=== PATIENT | male | born 1975 | race Caucasian/White ===

== ENCOUNTER 2017-06-03 17:19 | Emergency (ER) | payer OTHER ==
[~2017-06-03 17:19] MED LIST: METH40TA9 PO
[2017-06-03] MEDS ORDERED: IOHEXOL 350 MG/ML 10 ML VIAL (for RAD DIAG) IVCONTRAST ONE (17:20)
[2017-06-03 17:21] VITALS: BP 116/67; PULSE 105; RESP 20; TEMP 99.1; O2SAT 97
[2017-06-03] MEDS ORDERED: SODIUM CHLOR 0.9% 1000 ML INJ 1,000 ML IV SCH (17:39)
--- NOTE | 2017-06-03 17:40 | PD ---
HPI Chief Complaint: Pain: Acute or Chronic Time Seen by Provider: 17:40 Travel History International Travel<30 days: No Contact w/Intl Traveler<30days: No Traveled to known affect area: No History of Present Illness HPI 41-year-old male with history of chronic pain, presents to the emergency department for evaluation right upper quadrant pain radiating to his back 3 weeks. Pain is sharp, stabbing, 8 out of 10. Patient states it associated with nausea and vomiting. Pain seems to get worse after meals. Patient does have history of cholecystectomy. Denies any alcohol consumption. Denies any fever or chills. His bowel movements and voids have been normal. He has no other symptoms to report. PFSH Past Medical History Hx Anticoagulant Therapy: No Cardiovascular Problems: No Chemotherapy: No Cerebrovascular Accident: No Diabetes: No Respiratory: No Social History Alcohol Use: Yes (SOCIAL) Tobacco Use: Yes (1 PPD) Substance Use: Yes (HX OF PRESCRIPTION PAIN MED ABUSE; COCAINE) Allergies-Medications (Allergen,Severity, Reaction): Coded Allergies: codeine (Verified Allergy, Severe, 06/03/17) ketorolac (Verified Allergy, Severe, 06/03/17) naproxen (Verified Allergy, Severe, 06/03/17) tramadol (Verified Allergy, Severe, 06/03/17) No Known Allergies (Unverified Allergy, Unknown, 06/03/17) Reported Meds & Prescriptions Reported Meds & Active Scripts Active Reported Gabapentin 600 Mg Tab 600 Mg PO BID Omeprazole 40 Mg Cap 40 Mg PO DAILY Oxycodone (Oxycodone HCl) 20 Mg Tab 20 Mg PO Q6HR Xanax (Alprazolam) 2 Mg Tab 2 Mg PO QID PRN Clonidine (Clonidine HCl) 0.3 Mg Tab 0.3 Mg PO TID Methadone Hcl (Methadone HCl) 40 Mg Tab 210 Mg PO DAILY Review of Systems Except as stated in HPI: all other systems reviewed are Neg Physical Exam Narrative GENERAL: Well-nourished male patient, lying in bed in no acute distress. SKIN: Focused skin assessment warm/dry. HEAD: Atraumatic. Normocephalic. EYES: Pupils equal and round. No scleral icterus. No injection or drainage. ENT: No nasal bleeding or discharge. Mucous membranes pink and moist. NECK: Trachea midline. No JVD. CARDIOVASCULAR: Tachycardic rate and rhythm. No murmur appreciated. RESPIRATORY: No accessory muscle use. Clear to auscultation. Breath sounds equal bilaterally. GASTROINTESTINAL: Abdomen soft, nondistended. Right upper quadrant tenderness to palpation with mild guarding.. Hepatic and splenic margins not palpable. MUSCULOSKELETAL: No obvious deformities. No clubbing. No cyanosis. He does have anterior edema of the right distal lower extremity. This is a resolving hematoma that the patient is aware of and has had evaluated outpatient. NEUROLOGICAL: Awake and alert. No obvious cranial nerve deficits. Motor grossly within normal limits. Normal speech. PSYCHIATRIC: Appropriate mood and affect; insight and judgment normal. Data Data Last Documented VS Vital Signs Date Time Temp Pulse Resp B/P (MAP) Pulse Ox O2 Delivery O2 Flow Rate FiO2 06/03/17 17:21 99.1 105 20 116/67 (83) 97 Room Air Orders Orders Complete Blood Count With Diff (06/03/17 17:39) Comprehensive Metabolic Panel (06/03/17 17:39) Prothrombin Time / Inr (Pt) (06/03/17 17:39) Act Partial Throm Time (Ptt) (06/03/17 17:39) Ct Abd/Pel W Iv Contrast(Rout) (06/03/17 17:39) Iv Access Insert/Monitor (06/03/17 17:39) Ecg Monitoring (06/03/17 17:39) Oximetry (06/03/17 17:39) Sodium Chlor 0.9% 1000 Ml Inj (Ns 1000 M (06/03/17 17:39) Sodium Chloride 0.9% Flush (Ns Flush) (06/03/17 17:45) Morphine Inj (Morphine Inj) (06/03/17 18:30) Labs Laboratory Tests Test 06/03/17 18:05 White Blood Count 10.6 TH/MM3 Red Blood Count 4.45 MIL/MM3 Hemoglobin 13.2 GM/DL Hematocrit 38.2 % Mean Corpuscular Volume 85.9 FL Mean Corpuscular Hemoglobin 29.6 PG Mean Corpuscular Hemoglobin Concent 34.5 % Red Cell Distribution Width 15.3 % Platelet Count 270 TH/MM3 Mean Platelet Volume 7.9 FL Neutrophils (%) (Auto) 60.2 % Lymphocytes (%) (Auto) 27.1 % Monocytes (%) (Auto) 11.7 % Eosinophils (%) (Auto) 0.4 % Basophils (%) (Auto) 0.6 % Neutrophils # (Auto) 6.4 TH/MM3 Lymphocytes # (Auto) 2.9 TH/MM3 Monocytes # (Auto) 1.2 TH/MM3 Eosinophils # (Auto) 0.0 TH/MM3 Basophils # (Auto) 0.1 TH/MM3 CBC Comment DIFF FINAL Differential Comment Prothrombin Time 10.2 SEC Prothromb Time International Ratio 1.0 RATIO Activated Partial Thromboplast Time 31.7 SEC MDM Medical Decision Making Medical Screen Exam Complete: Yes Emergency Medical Condition: Yes Medical Record Reviewed: Yes Differential Diagnosis Biliary colic versus renal calculi versus pneumonia versus pancreatitis versus neoplasm versus liver disease Narrative Course 41-year-old male presents to emergency department for evaluation of right upper quadrant pain. Patient appears without distress. He does have right upper quadrant tenderness to palpation with mild guarding. He is treated for pain. Labs and CT imaging is ordered. 1900 patient is signed out to SHELBY Mathews. Disposition will pend her judgment. Condition: Stable Dalila Clayton Jun 03, 2017 17:40
[2017-06-03] MEDS ORDERED: CLON0.3T PO (17:44)
[2017-06-03] MEDS ORDERED: XANA2TAB2 PO (17:44)
[2017-06-03] MEDS ORDERED: OXYC-396 PO (17:44)
[2017-06-03] MEDS ORDERED: GABA600T PO (17:44)
[2017-06-03] MEDS ORDERED: OMEP40CA2 PO (17:44)
[2017-06-03] MEDS ORDERED: SODIUM CHLORIDE 0.9% FLUSH 10 ML FLUSH IV FLUSH PRN (17:45)
[2017-06-03 18:16] LABS: AUTOMATED NEUTROPHIL # 6.4 TH/MM3 (1.8-7.7); BASOPHIL # 0.1 TH/MM3 (0-0.2); BASOPHIL % 0.6 % (0.0-2.0); EOSINOPHIL % 0.4 % (0.0-4.0); HEMATOCRIT 38.2 % (39.0-51.0); HEMOGLOBIN 13.2 GM/DL (13.0-17.0); LYMPH % 27.1 % (9.0-44.0); LYMPHOCYTE # 2.9 TH/MM3 (1.0-4.8); MEAN CELL VOLUME 85.9 FL (80.0-100.0); MEAN CORPUSCULAR HEMOGLOBIN 29.6 PG (27.0-34.0); MEAN CORPUSCULAR HGB CONC 34.5 % (32.0-36.0); MEAN PLATELET VOLUME 7.9 FL (7.0-11.0); MONO % 11.7 % (0.0-8.0); MONOCYTE # 1.2 TH/MM3 (0-0.9); NEUT % 60.2 % (16.0-70.0); PLATELET COUNT 270 TH/MM3 (150-450); RED BLOOD COUNT 4.45 MIL/MM3 (4.50-5.90); RED CELL DISTRIBUTION WIDTH 15.3 % (11.6-17.2); WHITE BLOOD COUNT 10.6 TH/MM3 (4.0-11.0)
[2017-06-03] MEDS ORDERED: MORPHINE SULFATE 2 MG/ML INJ IV PUSH ONE (18:30)
[2017-06-03 18:33] LABS: PROTHROMBIN TIME - PATIENT 10.2 SEC (9.8-11.6)
[2017-06-03 18:38] LABS: ALBUMIN 3.1 GM/DL (3.4-5.0); AST (GOT) 23 U/L (15-37); BICARBONATE 24.1 MEQ/L (21.0-32.0); CALCIUM 8.4 MG/DL (8.5-10.1); CHLORIDE 104 MEQ/L (98-107); GLOMERULAR FILTRATION RATE 107 ML/MIN (>89); GLUCOSE,RANDOM 141 MG/DL (74-106); SODIUM (NA) 136 MEQ/L (136-145)
[2017-06-03 18:43] LABS: ALKALINE PHOSPHATASE 85 U/L (45-117); ALT (GPT) 35 U/L (12-78); BLOOD UREA NITROGEN 15 MG/DL (7-18); TOTAL BILIRUBIN ADULT 0.2 MG/DL (0.2-1.0); TOTAL PROTEIN 7.4 GM/DL (6.4-8.2)
--- NOTE | 2017-06-03 19:41 | RADRPT ---
EXAM DATE/TIME: 06/03/2017 19:10 [facility] COMPARISON: No previous studies available for comparison. INDICATIONS : Epigastric pain for three weeks. IV CONTRAST: 94 cc Omnipaque 350 (iohexol) IV ORAL CONTRAST: No oral contrast ingested. RADIATION DOSE: 8.24 CTDIvol (mGy) MEDICAL HISTORY : None SURGICAL HISTORY : None. ENCOUNTER: Initial ACUITY: 3 weeks PAIN SCALE: 8/10 LOCATION: Bilateral upper quadrant TECHNIQUE: Volumetric scanning of the abdomen and pelvis was performed. Using automated exposure control and ad justment of the mA and/or kV according to patient size, radiation dose was kept as low as reasonably achievable to obtain optimal diagnostic quality images. DICOM format image data is available electro nically for review and comparison. FINDINGS: LOWER LUNGS: The visualized lower lungs are clear. LIVER: Homogeneous density without lesion. There is no dilation of the biliary tree. Cholecystectomy. SPLEEN: Normal size without lesion. PANCREAS: Within normal limits. KIDNEYS: Normal in size and shape. There is no mass, stone or hydronephrosis. ADRENAL GLANDS: Within normal limits. VASCULAR: There is no aortic aneurysm. BOWEL/MESENTERY: No dilated loops of small or large bowel. No evidence of free fluid. ABDOMINAL WALL: Within normal limits. RETROPERITONEUM: There is no lymphadenopathy. BLADDER: No wall thickening or mass. REPRODUCTIVE: Within normal limits. INGUINAL: There is no lymphadenopathy or hernia. MUSCULOSKELETAL: Within normal limits for patient age. CONCLUSION: 1. Negative CT abdomen/pelvis with contrast. Alexandre Bhatt MD on June 03, 2017 at 19:37 Board Certified Radiologist. This report was verified electronically.
[2017-06-03] MEDS ORDERED: ZOFR8TAB4 SL (20:21)
--- NOTE | 2017-06-03 20:24 | PD ---
Physical Exam Date Seen by Provider: Jun 03, 2017 Time Seen by Provider: 20:23 Narrative GENERAL: This is a well-nourished, well-developed patient, in no apparent distress. SKIN: No rashes, ecchymoses or lesions. Warm and dry. HEAD: Atraumatic. Normocephalic. EYES: PERRL, EOMI, no discharge or injection. No scleral icterus. EARS: Clear NOSE: Nasal turbinates appear normal. THROAT: Mucosa pink and moist. Airway patent. NECK: Trachea midline. supple, moves head freely. LUNGS: Clear to auscultation. CV: Regular in rhythm. ABDOMEN: Soft nontender. There is no guarding or rebound. EXT: No clubbing cyanosis or edema. Data Data Last Documented VS Vital Signs Date Time Temp Pulse Resp B/P (MAP) Pulse Ox O2 Delivery O2 Flow Rate FiO2 06/03/17 17:21 99.1 105 20 116/67 (83) 97 Room Air Orders Orders Complete Blood Count With Diff (06/03/17 17:39) Comprehensive Metabolic Panel (06/03/17 17:39) Prothrombin Time / Inr (Pt) (06/03/17 17:39) Act Partial Throm Time (Ptt) (06/03/17 17:39) Ct Abd/Pel W Iv Contrast(Rout) (06/03/17 17:39) Iv Access Insert/Monitor (06/03/17 17:39) Ecg Monitoring (06/03/17 17:39) Oximetry (06/03/17 17:39) Sodium Chlor 0.9% 1000 Ml Inj (Ns 1000 M (06/03/17 17:39) Sodium Chloride 0.9% Flush (Ns Flush) (06/03/17 17:45) Morphine Inj (Morphine Inj) (06/03/17 18:30) Iohexol 350 Inj (Omnipaque 350 Inj) (06/03/17 17:20) Ondansetron Inj (Zofran Inj) (06/03/17 20:30) Ed Discharge Order (06/03/17 20:21) Labs Laboratory Tests Test 06/03/17 18:05 White Blood Count 10.6 TH/MM3 Red Blood Count 4.45 MIL/MM3 Hemoglobin 13.2 GM/DL Hematocrit 38.2 % Mean Corpuscular Volume 85.9 FL Mean Corpuscular Hemoglobin 29.6 PG Mean Corpuscular Hemoglobin Concent 34.5 % Red Cell Distribution Width 15.3 % Platelet Count 270 TH/MM3 Mean Platelet Volume 7.9 FL Neutrophils (%) (Auto) 60.2 % Lymphocytes (%) (Auto) 27.1 % Monocytes (%) (Auto) 11.7 % Eosinophils (%) (Auto) 0.4 % Basophils (%) (Auto) 0.6 % Neutrophils # (Auto) 6.4 TH/MM3 Lymphocytes # (Auto) 2.9 TH/MM3 Monocytes # (Auto) 1.2 TH/MM3 Eosinophils # (Auto) 0.0 TH/MM3 Basophils # (Auto) 0.1 TH/MM3 CBC Comment DIFF FINAL Differential Comment Prothrombin Time 10.2 SEC Prothromb Time International Ratio 1.0 RATIO Activated Partial Thromboplast Time 31.7 SEC Blood Urea Nitrogen 15 MG/DL Creatinine 0.80 MG/DL Random Glucose 141 MG/DL Total Protein 7.4 GM/DL Albumin 3.1 GM/DL Calcium Level 8.4 MG/DL Alkaline Phosphatase 85 U/L Aspartate Amino Transf (AST/SGOT) 23 U/L Alanine Aminotransferase (ALT/SGPT) 35 U/L Total Bilirubin 0.2 MG/DL Sodium Level 136 MEQ/L Potassium Level 4.2 MEQ/L Chloride Level 104 MEQ/L Carbon Dioxide Level 24.1 MEQ/L Anion Gap 8 MEQ/L Estimat Glomerular Filtration Rate 107 ML/MIN [facility] Medical Record Reviewed: Yes Supervised Visit with NARAYAN: Yes Interpretation(s) CBC & BMP Diagram 06/03/17 18:05 Total Protein 7.4, Albumin 3.1 L, Calcium Level 8.4 L, Alkaline Phosphatase 85, Aspartate Amino Transf (AST/SGOT) 23, Alanine Aminotransferase (ALT/SGPT) 35, Total Bilirubin 0.2 Last 24 hours Impressions Abdomen/Pelvis CT 06/03/17 0939 Signed Impressions: Service Date/Time: May 19:10 - CONCLUSION: 1. Negative CT abdomen/pelvis with contrast. Alexandre Bhatt MD Diagnosis Primary Impression: Right upper quadrant abdominal pain of unknown etiology Patient Instructions: Narcotic given in the ED, General Instructions Additional Instruction: Rest. Increase fluids. Zofran for nausea vomiting. Follow-up with your doctor tomorrow for recheck. Return to the ER for problems. Med/Other Pt SpecificInfo: Prescription(s) given Scripts Ondansetron Odt (Zofran Odt) 8 Mg Tab 8 MG SL Q8H Y for NAUSEA OR VOMITING, #12 TAB 0 Refills Prov: Mireya Hinson Yesenia SIMMONS 06/03/17 Disposition: 01 DISCHARGE HOME Condition: Stable Bismark Wong Jun 03, 2017 20:24
[2017-06-03] MEDS ORDERED: ONDANSETRON HCL 4 MG/2 ML VIAL IV PUSH ONE (20:30)
== END 2017-06-03 21:18 | disposition home or self-care (01) ==
LOC: NEPD 17:19
DX: R10.11 Right upper quadrant pain (principal); R11.2 Nausea with vomiting, unspecified; F14.10 Cocaine abuse, uncomplicated; F19.10 Other psychoactive substance abuse, uncomplicated; Z72.0 Tobacco use
CPT/HCPCS: 74177; 80053; 85025; 85610; 85730; 96361; 96374; 96375; 99285; J2270; J2405; J7030; Q9967